=== PATIENT | female | born 1970 | race Caucasian/White ===

== ENCOUNTER 2025-05-07 08:20 | Outpatient (AMB) | payer OTHER, SELFPAY ==
--- NOTE | 2025-05-07 08:35 | A.OFFPC_ITS ---
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 Accompanied by: Self / Same As Patient Allergies No Known Allergies Allergy (Verified 05/07/25 08:38) Medication List - Last Reconciled 05/07/25 by Aneta Rider MD omeprazole 20 mg PO DAILY PRN Tobacco use date assessed: 05/07/25 Dental Screening Dental Screen Date: 05/07/25 Did you have a dental visit in the last 12 months?: Yes Did you have a dental problem in the last 6 months where you did not have access to dental care?: No Was dental information given to patient?: Patient has dentist HPI HPI Comments History of Present Illness Details The patient is a 54 year old female presenting to [facility] care and for annual physical. She has no major health complaints but reports occasional hot flashes due to menopause. She has a history of GERD, for which an endoscopy 12/2021 showed mild gastritis. She manages flare-ups by taking omeprazole daily for a couple of weeks as needed. She reports a history of depression and was treated with antidepressants for a few years, has been off medication since 2018 and is currently doing fine without it. Surgical history includes a laparoscopic cholecystectomy and laparoscopic retrieval of a perforated intrauterine device (IUD) from her abdomen. She denies a history of appendectomy. She also had plastic surgery on facial scars as a child. The patient is a non-smoker and does not consume alcohol or use illicit substances. She recently moved from [place] in 11/2024 to be close to her daughter and grandchildren here. Healthcare Maintenance: Her last colonoscopy was in December 2021 and was normal, with repeat recommended in 10 years. Her last mammogram in September 2022 and her last Pap smear December 2019 (due). She is up to date with flu, COVID, tetanus (07/2020), and shingles vaccines (September and March 2023). [facility] Medical History (Updated 05/07/25 @ 09:58 by Aneta Rider MD) Depression Family History (Updated 05/07/25 @ 08:42 by Jomairaliz Scales, RMA) Other FH: mental illness Hypertension Lung cancer Substance abuse Type 2 diabetes mellitus Social History Housing: Apartment Patient Tobacco Use Status: Never used Tobacco e-Cigarette/Vaping Use: Never Used Second Hand Smoke Exposure: No service: No Current occupational status: employed Current occupational exposures/hazards: No Cognitive needs: No Hearing needs: No Vision needs: Yes Questionnaire PHQ-9 Over the last 2 weeks, how often have you been bothered by any of the following problems? 1. Little interest or pleasure in doing things: not at all 2. Feeling down, depressed, or hopeless: not at all 3. Trouble falling or staying asleep, or sleeping too much: not at all 4. Feeling tired or having little energy: not at all 5. Poor appetite or overeating: not at all 6. Feeling bad about yourself - or that you are a failure or have let yourself or your family down: not at all 7. Trouble concentrating on things, such as reading the newspaper or watching television: not at all 8. Moving or speaking so slowly that other people could have noticed. Or the opposite - being so fidgety or restless that you have been moving around a lot more than usual: not at all 9. Thoughts that you would be better off or of hurting yourself in some way: not at all Total score: 0 Source: Developed by Drs. Dany Hook, Michelle Tabor, Ramesh Osorio and colleagues, with an educational pili from [employer]. Thrive Questionnaire Date Thrive assessed: 05/07/25 I am a: Patient What is your living situation today?: I have a steady place to live Within the past 12 months, did the food you bought not last and you didn't have the money to get more?: Never true Within the past 12 months, did you worry whether your food would run out before you got money to buy more?: Never true Do you have trouble paying for medicines?: No Do you have trouble getting transportation to medical appointments?: No Do you have trouble paying your heating and electricity bill?: No Do you have trouble taking care of your child, family member or friend?: No Do you have trouble with day-to-day activities such as bathing, preparing meals, shopping, managing finances, etc.?: No Are you currently unemployed and looking for a job?: No Are you interested in more education?: No Please select the resources that you would like help with: None Currently or been in a relationship where the following occur: No concerns reported THRIVE Score: 0 AUDIT C Alcohol Use Questionnaire (AUDIT-C) 1. How often do you have a drink containing alcohol?: Never 3. How often do you have six or more drinks on one occasion?: Never Total Score: 0 BETTY-7 AMB Questionnaire BETTY-7 Date BETTY - 7 assessed: 05/07/25 Feeling nervous, anxious, or on edge: 0 = Not at all Not being able to stop or control worryin = Not at all Worrying too much about different things: 0 = Not at all Trouble relaxin = Not at all Being so restless that it is hard to sit still: 0 = Not at all Becoming easily annoyed or irritable: 0 = Not at all Feeling afraid as if something awful might happen: 0 = Not at all Total BETTY-7 score (0-4 normal; 5-9 mild; 10-14 moderate; 15-21 severe): 0 Source: Developed by Drs. Dany Hook, Michelle Tabor, Ramesh Osorio and colleagues, with an educational pili from [employer]. Physical exam (Primary Care) Vital Signs: Last Vital Signs Pulse 56 05/07/25 08:38 BP 110/76 05/07/25 08:38 Pulse Ox 98 05/07/25 08:38 Oxygen Delivery Method Room Air 05/07/25 08:38 General: Well-appearing, alert, oriented ?3, in no acute distress. HEENT: Normocephalic, atraumatic, PERRLA, EOMI, no scleral icterus. External ears normal, tympanic membranes intact bilaterally, no erythema or effusion. Nares patent, normal mucosa pink, no discharge. No oral lesions, or pharyngeal erythema. Neck Supple. Cardiovascular: RRR, S1-S2 appreciated, no murmurs, rubs or gallops. Respiratory: Lungs clear to auscultation bilaterally, no wheezes, rales or rhonchi. Abdomen: Soft, nontender, nondistended. Normoactive bowel sounds. MSK: Normal range of motion in all extremities, no joint swelling or deformity. Skin: Intact, no rashes or lesions Neurologic: Alert and oriented X3, cranial nerves II?XII grossly intact, sensation and strength intact in bilateral lower and upper extremities. Psychiatry: Normal mood and affect. Appropriate behavior, good eye contact. BMI result Body Mass Index 25.8 Tobacco/Smoking Status: Tobacco use Status Tobacco use date assessed 05/07/25 05/07/25 08:36 Patient Tobacco Use Status Never used Tobacco 05/07/25 08:45 e-Cigarette/Vaping Use Never Used 05/07/25 08:45 PHQ-9: PHQ-9 Score PHQ-9: Total score 0 05/07/25 08:36 Thrive Assessment: Date of Thrive Assessment Date Thrive assessed 05/07/25 05/07/25 08:36 Currently or been in a relationship where the following occur: No concerns reported Coding Level of Care Code New Pt Prev Care 40-64y(10763) Diagnoses Encounter to establish care with new provider Z76.89 Annual physical exam Z00.00 Gastroesophageal reflux disease without esophagitis K21.9 Esophagitis presence: without esophagitis Encounter for screening mammogram for malignant neoplasm of breast Z12.31 Breast cancer screening modality: mammogram Cervical cancer screening Z12.4 Assessment & Plan Assessment & Plan (1) Encounter to establish care with new provider: Code(s): Z76.89 - Persons encountering health services in other specified circumstances Plan: Patient presenting to establish care (2) Annual physical exam: Code(s): Z00.00 - Encounter for general adult medical examination without abnormal findings Category: Medical Plan: Colonoscopy - December 2021 and was normal, with repeat recommended in 10 years. mammogram in September 2022 - due Pap smear December 2019 - due. She is up to date with flu, COVID, tetanus (07/2020), and shingles vaccines (September and March 2023). (3) GERD (gastroesophageal reflux disease): Comment: EGD 12/2021 showed mild gastritis, neg biopsy Code(s): K21.9 - Gastro-esophageal reflux disease without esophagitis Category: Medical Qualifiers: Esophagitis presence: without esophagitis Qualified Code(s): K21.9 - Gastro-esophageal reflux disease without esophagitis Plan: Patient has a history of GERD, uses omeprazole p.r.n. (4) Breast cancer screening: Code(s): Z12.39 - Encounter for other screening for malignant neoplasm of breast Qualifiers: Breast cancer screening modality: mammogram Qualified Code(s): Z12.31 - Encounter for screening mammogram for malignant neoplasm of breast Plan: Patient due for mammogram, imaging ordered. (5) Cervical cancer screening: Code(s): Z12.4 - Encounter for screening for malignant neoplasm of cervix Plan: Last Pap smear from 2019, due for repeat. OBGYN referral provided. Orders: Orders Complete Blood Count Auto Diff Today Z00.00 - Encounter for general adult medical examination without abnormal findings Hemoglobin A1c Today Z13.1 - Encounter for screening for diabetes mellitus Lipid Panel with Reflex Today Z13.220 - Encounter for screening for lipoid disorders MM tomosynthesis screening BI Today Z12.39 - Encounter for other screening for malignant neoplasm of breast Comprehensive Met. Panel Today Z00.00 - Encounter for general adult medical examination without abnormal findings Vitamin D 25-OH (D2 and D3) Today Z13.21 - Encounter for screening for nutritional disorder Referrals [employer]AN[employer] MANAGER Referral Z12.4 - Encounter for screening for malignant neoplasm of cervix
[2025-05-07 08:38] VITALS: BP 110/76; PULSE 56; O2SAT 98; BMI 25.8
== END 2025-05-07 09:11 | disposition home or self-care (01) ==
LOC: HO.HMCH 08:21
PROVIDERS: PCP Student in an Organized Health Care Education/Training Program; Visit Provider Student in an Organized Health Care Education/Training Program
DX: Z76.89 Persons encountering health services in other specified circumstances (principal); Z00.00 Encounter for general adult medical examination without abnormal findings; K21.9 Gastro-esophageal reflux disease without esophagitis; Z12.31 Encounter for screening mammogram for malignant neoplasm of breast; Z12.4 Encounter for screening for malignant neoplasm of cervix